=== PATIENT | male | born 1950 | race Caucasian/White ===

== ENCOUNTER → 2018-08-20 | Outpatient (CLI) | payer OTHER | LOC: BHFA 08:30 | PROVIDERS: ATTEND Internal Medicine Cardiovascular Disease | DX: I47.1 Supraventricular tachycardia (principal); I25.10 Atherosclerotic heart disease of native coronary artery without angina pectoris; I10 Essential (primary) hypertension; R00.2 Palpitations | CPT/HCPCS: 78452; 93017; A9500 ==

== ENCOUNTER 2018-09-12 06:36 | Observation (INO) | payer OTHER ==
[2018-09-12] MEDS ORDERED: NS 1,000 ML IV ONE (06:39)
[2018-09-12 07:27] LABS: PLATELET COUNT 118 10^3/uL (150-400)
[2018-09-12 07:29] LABS: INR 1.12 (0.83-1.16)
--- NOTE | 2018-09-12 07:40 | PDGENHP ---
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
[2018-09-12] MEDS ORDERED: HEPARIN 10,000 UNIT/10 ML MDV (1,000 UNIT/ML) ONE (07:41)
[2018-09-12] MEDS ORDERED: BUPIVACAINE 0.75% 10 ML SDV ONE (07:41)
[2018-09-12] MEDS ORDERED: LIDOCAINE 1% 300 MG/30 ML SDV ONE (07:41)
[2018-09-12] MEDS ORDERED: ISOPROTERENOL HCL/D5W 0.2 MG/50 ML BAG IV ONE (07:42)
--- NOTE | 2018-09-12 08:08 | PDANEPAE ---
ANE History of Present Illness SVT ablation ANE Past Medical History - Cardiovascular History Hx Hypertension: Yes Hx Arrhythmias: Yes Hx Chest Pain: No Hx Coronary Artery / Peripheral Vascular Disease: Yes Hx CHF / Valvular Disease: No Hx Palpitations: No - Pulmonary History Hx COPD: No Hx Asthma/Reactive Airway Disease: No Hx Recent Upper Respiratory Infection: No Hx Oxygen in Use at Home: No Hx Sleep Apnea: No ANE Review of Systems Review of Systems: - Exercise capacity METS (RN): 4 METS ANE Patient History - Allergies Allergies/Adverse Reactions: No Known Allergies Allergy (Verified 09/09/18 09:03) - Home Medications Home Medications: Alfuzosin HCl [Alfuzosin HCl ER] 10 mg PO BID 09/07/18 [Last Taken Unknown] Allopurinol [Allopurinol 300 MG (RX)] 300 mg PO DAILY 09/07/18 [Last Taken Unknown] Ascorbate Calcium/Bioflavonoid [Britta-C 500 mg Tablet] 1 tab PO DAILY 09/07/18 [ Last Taken Unknown] Aspirin EC [Aspirin EC 81 mg (*)] 81 mg PO HS 09/07/18 [Last Taken Unknown] Cranberry 500 mg PO DAILY 09/07/18 [Last Taken Unknown] Grape Seed Extract [Grape Seed] 50 mg PO DAILY 09/07/18 [Last Taken Unknown] Herbals/Supplements -Info Only 1 ea PO DAILY 09/07/18 [Last Taken Unknown] Lactobacillus Acidophilus [Probiotic] 1 each PO DAILY 09/07/18 [Last Taken Unknown] Lisinopril [Zestril 10 mg (*)] 10 mg PO DAILY 09/07/18 [Last Taken Unknown] Metoprolol Succinate Xr [Toprol Xl 50 mg (*)] 50 mg PO DAILY@1600 09/07/18 [ Last Taken Unknown] Multivitamins [Multivitamin (*)] 1 each PO DAILY 09/07/18 [Last Taken Unknown] [place] Extract 250 mg PO DAILY 09/07/18 [Last Taken Unknown] [place]-3 Fatty Acids [Fish Oil 1000 mg (*)] 1,000 mg PO DAILY 09/07/18 [Last Taken Unknown] Red Yeast Rice 1,200 mg PO DAILY 09/07/18 [Last Taken Unknown] Ubidecarenone/Vit E Acet [Co Q-10 100 mg Softgel] 1 each PO DAILY 09/07/18 [ Last Taken Unknown] - Smoking Hx Smoking Status: Never smoked ANE Labs/Vital Signs - Labs Result Diagrams: 09/12/18 06:50 09/12/18 06:50 - Vital Signs Height: 170.18 cm Weight: 83.915 kg ANE Physical Exam - Airway Neck exam: decreased ROM Mallampati Score: Class 3 Mouth exam: normal dental/mouth exam (Upper front implants) - Pulmonary Pulmonary: no respiratory distress, no rales or rhonchi - Cardiovascular Cardiovascular: regular rate and rhythym, no murmur, rub, or gallop - ASA Status ASA Status: III ANE Anesthesia Plan Anesthesia Plan: MAC (GA if needed) Total IV Anesthesia: Yes
[2018-09-12] MEDS ORDERED: PROPOFOL/EMULSION 500 MG/50 ML BOTTLE IV ONE (08:34)
[2018-09-12] MEDS ORDERED: fentaNYL 250 MCG/5 ML INJ ONE (08:34)
[2018-09-12] MEDS ORDERED: MIDAZOLAM 2 MG/2 ML VIAL ONE (08:35)
[2018-09-12] MEDS ORDERED: PHENYLEPHRINE HCL 100 MCG/ML SYR ONE (10:16)
[2018-09-12] MEDS ORDERED: ONDANSETRON 4 MG/2 ML VIAL ONE (10:19)
[2018-09-12] MEDS ORDERED: ACETAMINOPHEN 325 MG TAB PO PRN (10:38)
[2018-09-12] MEDS ORDERED: HYDROCODONE/APAP 5/325 TAB PO PRN ×2 (10:38→10:39)
[2018-09-12] MEDS ORDERED: oxyCODONE IR 5 MG TAB PO PRN (10:39)
[2018-09-12] MEDS ORDERED: ONDANSETRON 4 MG/2 ML VIAL IVP PRN (10:39)
[2018-09-12] MEDS ORDERED: NALOXONE HCL 0.4 MG/ML INJ IVP PRN (10:39)
[2018-09-12] MEDS ORDERED: ACETAMINOPHEN 500 MG TAB PO PRN (10:39)
[2018-09-12] MEDS ORDERED: fentaNYL 100 MCG/2 ML INJ IVP PRN (10:39)
--- NOTE | 2018-09-12 11:26 | EPPROC ---
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 IV sedation was provided by the anesthesiology service. Bilateral groins were prepped and draped in usual sterile fashion. 1% lidocaine was infiltrated over the right femoral vessels. Under ultrasound guidance, right femoral venous access was obtained x4 with placement of two 5 [place] Helenian short sheaths, 8 St Helenian short sheath, 7 [place] Helenian short sheath. Under Carto guidance, a decapolar catheter was positioned in the CS; quads at HRA and RVA; octa at his. Baseline rhythm was sinus, with no manifest ventricular pre-excitation PP 1046ms RI 196ms QRS 101ms QT 392ms AH 78ms HV 69ms Retrograde conduction was concentric and decremental VA BCL 350ms Antegrade conduction from CSp was decremental, with evidence of dual AV briana physiology. True AV briana ERP could not be obtained due to induction of SVT. AV BCL 460ms Narrow complex tachycardia was induced at 600/400ms; this showed TCL 460-490ms, concentric RAAS, septal VA time -15ms. Entrainment from RV apical position showed VAHV return, and PPI-TCL = 721-506ms= 215ms. On balance, these findings were diagnostic of typical AV briana reentry. The his catheter was removed, and the 7 [place] Helenian sheath was exchanged over a wire for an SR 0 sheath. A 4 mm nonirrigated ablation catheter was inserted, and was used to create a CARTO map of the right atrium and proximal coronary sinus; the his position was annotated on the map. The AV node slow pathway region was localized using anatomic landmarks and local EGMs. RF ablation was performed in this location at 25-30 w power and 55 degree C limits. During RFA, junctional automaticity was observed, with consistent antegrade and retrograde conduction. Following ablation, electrophysiologic study was repeated. In the baseline state, SVT was no longer inducible with programmed stimulation from CSp. There was no evidence of dual AV briana physiology. AVN ERP (directly off fast pathway) 600/370ms AERP 600/240ms During isoproterenol infusion up to 6 mcg/minute, SVT was no longer inducible with program stimulation from [facility]. There was no evidence of dual AV briana physiology. AVN ERP (directly off fast pathway) 500/230ms AERP 500/200ms At the completion of the study, all catheters were removed. Sheaths were aspirated and flushed. A temporary hemostasis suture was applied to the right groin access site, and sheaths were removed; manual pressure was held until hemostasis. The patient tolerated the procedure well. 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
--- NOTE | 2018-09-12 12:30 | CPEKG ---
Test Reason : OPEN Blood Pressure : / mmHG Vent. Rate : 065 BPM Atrial Rate : 065 BPM P-R Int : 183 ms QRS Dur : 097 ms QT Int : 393 ms P-R-T Axes : -01 -40 010 degrees QTc Int : 409 ms Sinus rhythm Abnormal R-wave progression, early transition Inferior infarct, old Confirmed by Timo Billings ([id number]) on 09/12/2018 12:29:49 PM Referred By: Yeison Duffy Confirmed By:Timo Billings
--- NOTE | 2018-09-12 12:34 | CPEKG ---
Test Reason : OPEN Blood Pressure : / mmHG Vent. Rate : 060 BPM Atrial Rate : 061 BPM P-R Int : 194 ms QRS Dur : 097 ms QT Int : 422 ms P-R-T Axes : 030 -32 000 degrees QTc Int : 422 ms Sinus rhythm Inferior infarct, old Confirmed by Timo Billings ([id number]) on 09/12/2018 12:33:41 PM Referred By: Yeison Duffy Confirmed By:Timo Billings
[2018-09-12] MEDS: (Alfuzosin Hcl [Alfuzosin Hcl Er] 10 MG) PO SCH (22:07)
[2018-09-13 07:49] VITALS: BP 143/87
[2018-09-13] MEDS ORDERED: LISINOPRIL 10 MG TAB PO SCH (09:00)
[2018-09-13] MEDS ORDERED: UBIDECARENONE PO SCH (09:00)
[2018-09-13] MEDS ORDERED: ASPIRIN 325 MG TAB PO SCH (09:00)
[2018-09-13] MEDS ORDERED: VIT E ACET PO SCH (09:00)
[2018-09-13] MEDS ORDERED: ALLOPURINOL 300 MG TAB PO SCH (09:00)
--- NOTE | 2018-09-13 09:54 | CPEKG ---
Test Reason : OPEN Blood Pressure : / mmHG Vent. Rate : 064 BPM Atrial Rate : 064 BPM P-R Int : 185 ms QRS Dur : 097 ms QT Int : 404 ms P-R-T Axes : 030 -34 010 degrees QTc Int : 417 ms Sinus rhythm Inferior infarct, old Confirmed by Timo Billings ([id number]) on 09/13/2018 9:53:59 AM Referred By: Yeison Duffy Confirmed By:Timo Billings
[2018-09-13] MEDS: (Alfuzosin Hcl [Alfuzosin Hcl Er] 10 MG) PO SCH (10:42)
--- NOTE | 2018-09-13 11:29 | ASDISCHSUM ---
Discharge Information Plan Status:Home with No Needs Medically Cleared to Leave:09/13/2018 Discharge Date:09/13/2018 CM D/C Disposition:Home, Routine, Self-Care ADT D/C Disposition:Home, Routine, Self-Care Projected Discharge Date:09/13/2018 Transportation at D/C: Discharge Delay Reason: Follow-Up Date:09/13/2018 Discharge Slot: Final Diagnosis: Placement Information Patient Contact Information Contact Name:ESTUARDO Relationship: Address:[address] Work Phone: City:[facility] Phone: State/Zip Code:[place] [address] Email: Financial Information Financial Class:Medicare Primary Plan Desc:MEDICARE OUTPATIENT Primary Plan Number:[id number] Secondary Plan Desc:MILI BARGER Secondary Plan Number:[id number] Assessment Information LACE LACE Length of stay for Answers: 1 day current admission Acuity / Level of Answers: No Care: Did the patient have an inpatient admission? Comorbidities - select Answers: Coronary Artery Disease all that apply Previous myocardial infarction Other Notes: HTN # of Emergency department Answers: 0 visits in the last 6 months Score: 5 Date Signed: 09/13/2018 11:28 AM Electronically Signed By:Loyda Painter RN Intervention Information Intervention Type:*ISH-Signed Date of Service:09/12/2018 02:44 PM Patient Type:Observation Staff Member:Shonda Mckinney Hours: Discipline: Severity: Comment:
--- NOTE | 2018-09-13 17:45 | GDS ---
[f rep st] DISCHARGE SUMMARY DISCHARGE DIAGNOSES: 1. Supraventricular tachycardia. 2. Status post ablation of atrioventricular briana reentry tachycardia. 3. Hypertension. 4. History of coronary artery disease with prior percutaneous coronary intervention. BRIEF HISTORY: 68-year-old man with history of recurrent SVT that has not been controlled with beta-blockers. His symptoms and EKG demonstrated probable AVNRT. He also has a history of coronary artery disease with prior PCI, and history of hypertension. HOSPITAL COURSE: Dr. Duffy successful ablation of the AV briana slow pathway , eliminating AVNRT. There were no complications. The patient has done well overnight without any significant groin discomfort. There has been no bleeding , and he has not had any chest discomfort. LAB WORK: WBC is 4.88, hemoglobin 16.7, hematocrit 46.9, platelets 118, sodium 137, potassium 4.1, chloride 105, bicarb 23, BUN 15, creatinine 0.9, glucose is 96, calcium 9.6, mag is 2.02. PHYSICAL EXAMINATION: VITAL SIGNS: Blood pressure is 143/87, pulse is 63, respirations 13, temperature 37.1, O2 saturation is 96% on room air. GENERAL: He is alert and oriented, lying in bed, in no acute distress. LUNGS: Clear to auscultation. CARDIAC: Regular rate and rhythm without murmur, rub, or gallop. ABDOMEN: Soft and nontender. EXTREMITIES: Warm. There is no discoloration. Bilateral, +2 pedal pulses. One suture was removed from his right femoral vein groin site without problem. There is no hematoma. No bleeding, and no bruit. There is very small amount of bruising. DISCHARGE ACTIVITY RESTRICTIONS: Post ablation, groin precautions were given to patient, both verbally and in written discharge instructions. He will follow these for 10 days. He will take aspirin 81 mg daily for 1 month. He was instructed to get up and walk around if sitting for longer than 45 minutes at a time for the next 6 weeks also. DISCHARGE MEDICATIONS: Please see discharge medication reconciliation. Of note , his metoprolol dose was cut in half to 25 mg daily due to bradycardia. FOLLOWUP: He has a followup with Dr. Duffy on 10/11, at 9:30. ADDENDUM Radames Duffy MD - uneventful post-op observation following ablation of typical AVNRT. Post-procedure care and followup as outlined above. /[id number]/MODL MTDD
--- NOTE | 2018-09-18 12:34 | GPROG ---
[f rep st] PROGRESS NOTE POST ANESTHESIA NOTE The patient had monitored anesthesia care on September 12, 2018. The patient was deeply sedated for SVT a blation. This was tolerated well. The patient was taken to recovery awake, alert, pain controlled, nausea controlled. He was able to have discussion. He was discharged home the same day. No apparen t monitored anesthesia complications noted. /[id number]/MODL
== END 2018-09-13 11:31 | disposition home or self-care (01) ==
LOC: FCATH 06:36 → F2W 10:38
PROVIDERS: ADMIT Internal Medicine Cardiovascular Disease; ATTEND Internal Medicine Cardiovascular Disease
PROC: 02K83ZZ Map Conduction Mechanism, Percutaneous Approach (ICD-10-PCS; principal; 2018-09-12)
PROC: B244ZZZ Ultrasonography of Right Heart (ICD-10-PCS; principal; 2018-09-12)
PROC: 4A023FZ Measurement of Cardiac Rhythm, Percutaneous Approach (ICD-10-PCS; principal; 2018-09-12)
PROC: 5A1213Z Performance of Cardiac Pacing, Intermittent (ICD-10-PCS; principal; 2018-09-12)
PROC: 025K3ZZ Destruction of Right Ventricle, Percutaneous Approach (ICD-10-PCS; principal; 2018-09-12)
DX: I47.1 Supraventricular tachycardia (principal); I10 Essential (primary) hypertension; I25.10 Atherosclerotic heart disease of native coronary artery without angina pectoris; Z95.5 Presence of coronary angioplasty implant and graft
CPT/HCPCS: 93005; 93613; 93621; 93623; 93653; C1730; C1732; C1893; J1644; J2250; J2370; J2405; J2704; J3010